=== PATIENT | female | born 1975 | race Caucasian/White ===

== ENCOUNTER 2016-05-04 20:17 | Emergency (ER) | payer OTHER ==
[~2016-05-04] VITALS: Ht 167.6 cm; Wt 74.5 kg
[2016-05-04 20:50] VITALS: Ht 167.6 cm; Wt 74.5 kg
[2016-05-04] MEDS ORDERED: DIPHENHYDRAMINE 25 MG CAP PO ONE (21:30)
[2016-05-04] MEDS ORDERED: FAMOTIDINE 20 MG TAB PO ONE (21:30)
[2016-05-04] MEDS ORDERED: predniSONE 20 MG TAB PO ONE (21:30)
[2016-05-04] MEDS ORDERED: FAMO-18 PO (21:32)
[2016-05-04] MEDS ORDERED: PRED20TA PO (21:32)
--- NOTE | 2016-05-04 21:47 | ERD ---
ER Documentation Chief Complaint Date/Time DATE: 05/04/16 TIME: 21:45 Chief Complaint LEFT ARM RASH, ICTHY & RED X 2 DAYS HPI 40 year old female comes in with a generalized rash both arms and chest that started 2 days ago that is pruritic. She has been taking Benadryl but not improving. She has not had any shortness breath, chest pain. Denies fevers or chills, flulike symptoms. She denies any new foods, medications, lotions or creams. ROS All systems reviewed and are negative except as per history of present illness. Medications Home Meds Active Scripts Famotidine* (Pepcid*) 20 Mg Tablet, 20 MG PO BID for 4 Days, TAB Prov:RAINER GARCIA PA-C 05/04/16 Prednisone* (Prednisone*) 20 Mg Tab, 40 MG PO DAILY for 4 Days, TAB Prov:RAINER GARCIA PA-C 05/04/16 PMhx/Soc Medical and Surgical Hx: pt denies Medical Hx, pt denies Surgical Hx History of Surgery: No Anesthesia Reaction: No Hx Neurological Disorder: No Hx Respiratory Disorders: No Hx Cardiac Disorders: No Hx Psychiatric Problems: No Hx Miscellaneous Medical Probl: No Hx Alcohol Use: No Hx Substance Use: No Hx Tobacco Use: No Physical Exam Vitals Vital Signs Date Time Temp Pulse Resp B/P Pulse Ox O2 Delivery O2 Flow Rate FiO2 05/04/16 20:50 98.1 70 20 154/76 97 Physical Exam General: Well-developed, well-nourished. The patient appears in no acute distress. HEENT: Head is normocephalic, atraumatic. No scleral icterus. Neck: Supple. Nontender. Lungs: Clear to auscultation. Normal air movement. Heart: Regular rate and rhythm. S1 and S2 are normal. No murmurs, gallops, or rubs. Abdomen: Soft, nontender, nondistended. Bowel sounds are normoactive. Extremities: No clubbing or cyanosis. Normal pulses. Moving extremities x 4. No weakness. Neurologic: Alert and oriented 3. No focal deficits. Skin: Scattered erythematous lesions, slight scaling, Results 24 hrs Current Medications Medications (Trade) Dose Ordered Sig/Marge Route PRN Reason Start Time Stop Time Status Last Admin Dose Admin Prednisone (Prednisone) 40 mg ONCE ONCE PO 05/04/16 21:30 05/04/16 21:31 DC 05/04/16 21:43 Diphenhydramine HCl (Benadryl) 25 mg ONCE ONCE PO 05/04/16 21:30 05/04/16 21:31 DC 05/04/16 21:43 Famotidine (Pepcid) 20 mg ONCE ONCE PO 05/04/16 21:30 05/04/16 21:31 DC 05/04/16 21:43 Procedures/MDM ED course: She was given Benadryl, prednisone and Pepcid. MDM: 40-year-old female presents with dermatitis her chest and arms, patient describes as pruritic and has had this for 2 days. She does not have any viral symptoms including fever, cough, runny nose. Possible viral exanthem based on the presentation given the scaling, will treat with Benadryl, prednisone and Pepcid. She does not show any signs of angioedema, cellulitis, abscess, meningitis. Departure Diagnosis: Primary Impression: Rash Condition: Good Patient Instructions: Dermatitis, Non-Specific Additional Instructions: Call your primary care doctor TOMORROW for an appointment during the next 1-2 days.See the doctor sooner or return here if your condition worsens before your appointment time. RAINER GARCIA PA-C May 04, 2016 21:47
== END 2016-05-04 21:51 | disposition home or self-care (01) ==
LOC: FTE 20:17 → EDBD 20:17 → FTE 21:51
DX: R21 Rash and other nonspecific skin eruption (principal)
CPT/HCPCS: J7512; Z7502; Z7610; 99283